=== PATIENT | female | born 1940 | race Caucasian/White ===

== ENCOUNTER 2021-12-02 06:46 | Emergency (ER) | payer MEDICARE, SELFPAY ==
[2021-12-02 06:53] VITALS: BP 154/74; PULSE 86; RESP 16; TEMP 36.6; O2SAT 98; BMI 22.3
--- NOTE | 2021-12-02 07:04 | CRLHL7_ITS ---
For Patients: As a result of the Cures Act, medical imaging exams and procedure reports are released immediately into your electronic medical record. You may view this report before your referring provider. If you have questions, please contact your health care provider. INDICATION: Trauma COMPARISON: No prior shoulder study TECHNIQUE: Three views of the right shoulder were acquired FINDINGS: Bone mineral density is decreased. There is osteoarthritis. A fracture of the distal clavicle is noted. The acromioclavicular joint does not appear to be widened. IMPRESSION: Fracture of the distal right clavicle without widening or apparent disruption of the acromioclavicular joint. Dictated by Farshad Garner MD @ 12/02/2021 7:36:37 AM (Electronically Signed)
--- NOTE | 2021-12-02 07:04 | CRLHL7_ITS ---
For Patients: As a result of the Cures Act, medical imaging exams and procedure reports are released immediately into your electronic medical record. You may view this report before your referring provider. If you have questions, please contact your health care provider. INDICATION: Pain. Fall. COMPARISON: 02/20/2020 TECHNIQUE: Single-view chest radiograph FINDINGS: TUBES AND LINES: None. HEART AND MEDIASTINUM: The heart size is normal. The mediastinal contour appears normal for patient age. LUNGS AND PLEURAL SPACES: The lungs appear normal.The pleural spaces are unremarkable. OSSEOUS STRUCTURES: Age-appropriate appearance. No acute focal finding. IMPRESSION: No evidence of active pulmonary disease. Dictated by Farshad Garner MD @ 12/02/2021 7:34:32 AM (Electronically Signed)
--- NOTE | 2021-12-02 07:08 | CRLHL7_ITS ---
For Patients: As a result of the Century Cures Act, medical imaging exams and procedure reports are released immediately into your electronic medical record. You may view this report before your referring provider. If you have questions, please contact your health care provider. INDICATION: Trauma. On Coumadin. COMPARISON: July 08, 2021 TECHNIQUE: CT examination of the head was performed as axial sections without intravenous contrast. Images were obtained from the vertex of the skull through the skull base. Please note that all CT scans at this facility use dose modulation, iterative reconstruction, and/or weight-based dosing when appropriate to reduce radiation dose to as low as reasonably achievable. FINDINGS: The brain shows no sign of mass lesion, mass effect, hemorrhage, or edema. Probable nonacute subcortical infarct on the right. Similar to July 08, 2021. The ventricles and sulci are normal in appearance for the patient`s age. The visualized portions of the orbits are normal in appearance. The osseous structures are normal in their appearance with no sign of abnormality in the skull base or calvarium. IMPRESSION: No hemorrhage. No acute appearing finding when compared to July 08, 2021. Please note that all CT scans at this facility use dose modulation, iterative reconstruction, and/or weight-based dosing when appropriate to reduce radiation dose to as low as reasonably achievable. Dictated by Farshad Garner MD @ 12/02/2021 7:40:28 AM (Electronically Signed)
--- NOTE | 2021-12-02 07:08 | ED.GENADULT ---
HPI - General Adult General Time Seen by Provider: 06:58 Date Seen: 12/02/21 Chief complaint: Shoulder Injury/Pain Stated complaint: fall/right shoulder injury Time Seen by Provider: 12/02/21 06:57 Source: patient and family Mode of arrival: ambulatory Limitations: no limitations History of Present Illness HPI narrative: 81-year-old female who comes in today right arm and shoulder pain hours ago. She tripped and landed on her right shoulder. She has pain in the right shoulder and right lateral chest. She denies any shortness of breath or cough. She denies loss of consciousness. She has not taken anything for her pain. Related Data Home Medications Medication Instructions Recorded Confirmed metoprolol succinate 25 mg 25 mg PO DAILY 12/02/21 12/02/21 tablet,extended release 24 hr Previous Rx's Medication Instructions Recorded warfarin 5 mg tablet 5 mg PO QDAY #90 tab 11/20/21 tramadol 50 mg tablet 50 mg PO Q8H PRN #10 tab 12/05/21 Allergies Allergy/AdvReac Type Severity Reaction Status Date / Time No Known Drug Allergies Allergy Verified 12/05/21 12:38 Review of Systems Status of ROS: Reports: 10 or more systems reviewed and unremarkable except as noted in History and below [facility] Medical History (Updated 12/05/21 @ 12:12 by Kassi Mcduffie MD) Kidney infarction Left ventricular apical thrombus TIA (transient ischemic attack) Surgical History (Updated 12/05/21 @ 12:12 by Kassi Mcduffie MD) History of benign breast biopsy History of bilateral cataract extraction History of melanoma (~2014) History of squamous cell carcinoma of skin (~2014) Family History (Updated 12/02/21 @ 11:28 by Mercedez Ames) Maternal Grandmother Breast cancer Mother CHF (congestive heart failure) Daughter Breast cancer Social History Smoking Status: Never smoker Do you use any of these nicotine containing products: None How often do you have a drink containing alcohol: never AUDIT-C Alcohol total score: 0 Non-prescribed substance use: denies use Exam Narrative: Exam Narrative: General: Well-developed and well-nourished, no acute distress Head: Atraumatic and normocephalic Eyes: Pupils are equal reactive, extraocular motions intact, conjunctiva clear ENT: External nose and ears are normal, posterior pharynx without erythema or exudate Neck: No midline cervical tenderness, full spontaneous range of motion the neck, trachea midline, no adenopathy Heart: Regular rate and rhythm no murmurs or thrills Lungs: Clear to auscultation bilaterally without wheezes or crackles. Right lateral chest wall tenderness. Abdomen: Soft, nontender, nondistended with active bowel sounds Musculoskeletal: Bruising and swelling of the right shoulder with clavicle deformity, moderate joint effusion. Neurologic: Awake, alert, and oriented x3, no gross focal neurologic deficits, cranial nerves intact as tested Psych: Mood and affect are appropriate Skin: No rashes Const: Vital Signs, click to edit/add: Vital Signs - 24 hr 12/02/21 06:53 Temperature 97.9 F Pulse Rate [Left P ulse Oximeter] 86 Respiratory Rate 16 Blood Pressure [Le ft Upper Arm] 154/74 H Pulse Oximetry 98 Documenting provider has reviewed patient's vital signs: yes Course Course Hospital Course: CT scan of the head, neck negative. X-ray of the shoulder demonstrates distal clavicle fracture. Sling was placed and patient is discharged in stable condition Vital Signs Vital signs: Initial Vital Signs Temperature 97.9 F 12/02/21 06:53 Temperature Source Temporal Artery Scan 12/02/21 06:53 Pulse Rate 86 12/02/21 06:53 Pulse Rhythm 12/02/21 06:53 Respiratory Rate 16 12/02/21 06:53 Blood Pressure 154/74 H 12/02/21 06:53 Blood Pressure Mean 100 12/02/21 06:53 Blood Pressure Position Sitting 12/02/21 06:53 Pulse Oximetry 98 12/02/21 06:53 Oxygen Delivery Method 12/02/21 06:53 Vital Signs Temperature 97.9 F 12/02/21 06:53 Pulse Rate 86 12/02/21 06:53 Respiratory Rate 16 12/02/21 06:53 Blood Pressure 154/74 H 12/02/21 06:53 Pulse Oximetry 98 12/02/21 06:53 Temperature 97.9 F 12/02/21 06:53 Pulse Rate 78 12/02/21 08:04 Respiratory Rate 15 12/02/21 08:04 Blood Pressure 154/74 H 12/02/21 06:53 Pulse Oximetry 98 12/02/21 08:04 Medical Decision Making MDM Narrative Medical decision making narrative: Patient seen and examined fell and sustained a right shoulder injury. Likely fracture of the clavicle, humerus fracture also possible. Head CT ordered for possible intracranial hemorrhage given Coumadin use the wall. X-rays and head CT are ordered, [place] ordered as well. Medical Records Medical records reviewed: Yes I reviewed the patient's medical records Lab Data Lab results reviewed: Yes I reviewed the patient's lab results Discharge Plan Discharge Clinical Impression: Closed fracture of distal clavicle, terminal make up operator (current) use of anticoagulants Instructions: Clavicle Fracture (ED) Additional Instructions: Wear sling for comfort. Remove the sling every 2-3 hours to do motion exercises. Activity Level: Activity as Tolerated Discharge Diet: Regular Prescriptions: No Action tramadol 50 mg tablet 50 mg PO Q8H PRN (Reason: pain) Qty: 10 0RF metoprolol succinate 25 mg tablet extended release 24 hr 25 mg PO DAILY 0RF Label Comments: TAKE 1/2 (ONE-HALF) TABLET BY MOUTH ONCE DAILY DO NOT CRUSH OR CHEW warfarin 5 mg tablet 5 mg PO QDAY Qty: 90 0RF Protocol: Dose Management Condition: Thursday Dose/Route: 5 % Instruction: 1 x 5 % tablet Condition: Thursday Dose/Route: 2.5 % Instruction: 0.5 x 5 % tablets Condition: Thursday Dose/Route: 5 % Instruction: 1 x 5 % tablet Condition: Thursday Dose/Route: 2.5 % Instruction: 0.5 x 5 % tablets Condition: Dose/Route: 5 % Instruction: 1 x 5 % tablet Condition: Thursday Dose/Route: 2.5 % Instruction: 0.5 x 5 % tablets Condition: Thursday Dose/Route: 5 % Instruction: 1 x 5 % tablet Protocol Text: Adjustment Start Date: Thursday11/20/21 INR Value: 3.3 INR Date: 11/20/21 Recheck Date: 12/04/21 Rx Instructions: Take 2.5 mg po on Thursday/Thursday/Thursday, take 5mg po the rest of the week. Follow Up/Referrals: Kassi Mcduffie MD [Primary Care Provider] - 2 Days
[2021-12-02] MEDS: HYDROCODONE-ACETAMIN 5-325 MG 1 TAB PO (07:27)
[2021-12-02 08:04] VITALS: PULSE 78; RESP 15; O2SAT 98
== END 2021-12-02 08:04 | disposition home or self-care (01) ==
LOC: ED 07:49
PROVIDERS: Emergency Provider Family Medicine; PCP Internal Medicine
DX: S42.034A Nondisplaced fracture of lateral end of right clavicle, initial encounter for closed fracture (principal); W01.0XXA Fall on same level from slipping, tripping and stumbling without subsequent striking against object, initial encounter
CPT/HCPCS: 70450; 71045; 73030; 99284; A9270

== ENCOUNTER 2022-06-09 08:23 | Emergency (ER) | payer MEDICARE, SELFPAY ==
[2022-06-09 08:29] VITALS: BP 136/82; PULSE 91; RESP 20; TEMP 37.6; O2SAT 94; BMI 23.2
--- NOTE | 2022-06-09 09:27 | CRLHL7_ITS ---
For Patients: As a result of the Cures Act, medical imaging exams and procedure reports are released immediately into your electronic medical record. You may view this report before your referring provider. If you have questions, please contact your health care provider. INDICATION: Fever. TECHNIQUE: AP portable chest. COMPARISON: December 02, 2021. FINDINGS: Clear lungs. Normal heart size and pulmonary vascularity. The included skeleton is unremarkable. IMPRESSION: No acute cardiopulmonary process identified. Dictated by Akhil Lao MD @ 06/09/2022 9:54:27 AM (Electronically Signed)
[2022-06-09 09:29] LABS: PCR FLU A Negative PCR FLU A (Negative); PCR FLU B Negative PCR FLU B (Negative); PCR RSV Negative PCR RSV (Negative)
[2022-06-09 09:33] LABS: SARS PCR* POSITIVE SARS-CoV-2 (Negative)
[2022-06-09] MEDS: TRAMADOL HCL 50 MG TABLET PO (09:59)
[2022-06-09 10:13] LABS: Strep A DNA Probe* NOT DETECTED (Not Detectd)
[2022-06-09 10:30] VITALS: PULSE 81; RESP 20; TEMP 37.9; O2SAT 96
[2022-06-09 10:53] VITALS: BP 119/67; PULSE 78; RESP 18; O2SAT 94
--- NOTE | 2022-06-09 11:15 | ED_ITS ---
HPI - General Adult General Date Seen: 06/09/22 Chief complaint: Fever Stated complaint: Fever/sore throat/headache/home covid neg Time Seen by Provider: 06/09/22 09:07 Source: patient and family Mode of arrival: ambulatory Limitations: no limitations History of Present Illness HPI narrative: Patient is a 81-year-old woman here with her granddaughter. For the past couple of days she has had a little bit of a sore throat which got worse last night. She has had a headache, a little bit of a cough, has some right-sided lower chest pain when she takes a deep breath. She has not had any shortness of breath. She has had a fever up to 102. She has taken a couple of COVID test at home which were negative. No ill contacts. She does have a history of AFib, she is on Coumadin for that. She takes her Coumadin regularly. Also has a history of coronary artery disease. Has not been having any left-sided chest pain. In looking at her INR the past couple of times it has been checked, it has been on the low side, 1.8. I asked her about this, she says that they did not change her dosing but she changed it on her own, increasing it slightly. Related Data Home Medications Medication Instructions Recorded Confirmed metoprolol succinate 25 mg 25 mg PO DAILY 12/02/21 06/09/22 tablet,extended release 24 hr Previous Rx's Medication Instructions Recorded tramadol 50 mg tablet 50 mg PO Q8H PRN pain #10 tabs 12/05/21 warfarin 5 mg tablet 5 mg PO QDAY #90 tabs 02/27/22 Allergies Allergy/AdvReac Type Severity Reaction Status Date / Time No Known Drug Allergies Allergy Verified 06/09/22 08:35 Review of Systems Status of ROS: Reports: 10 or more systems reviewed and unremarkable except as noted in History and below [facility] Medical History Kidney infarction Left ventricular apical thrombus TIA (transient ischemic attack) Surgical History (Updated 12/05/21 @ 12:12 by Kassi Mcduffie MD) History of benign breast biopsy History of bilateral cataract extraction History of melanoma (~2014) History of squamous cell carcinoma of skin (~2014) Family History (Updated 12/02/21 @ 11:28 by Mercedez Ames) Maternal Grandmother Breast cancer Mother CHF (congestive heart failure) Daughter Breast cancer Social History Smoking Status: Never smoker Do you use any of these nicotine containing products: None How often do you have a drink containing alcohol: 2-3 times a week How many standard drinks containing alcohol do you have on a typical day: 1 or 2 AUDIT-C Alcohol total score: 3 Non-prescribed substance use: denies use service: No Exam Narrative: Exam Narrative: Vital signs as noted above. In general, an alert, well-appearing patient. Head: Normocephalic, atraumatic. Eyes: Pupils are equal reactive. Extraocular movements are full. Conjunctivae are normal. ENT: Mucous membranes are moist. Throat is normal. Neck: Supple without lymphadenopathy. Heart: Regular rate and rhythm. No murmur or rub. Lungs: Clear bilaterally. No increased work of breathing, crackles or wheezes. Extremities: Well perfused. No edema. No calf tenderness. Pulses intact. Neurologic: Patient is alert and oriented to person and place. Speech is fluent. Face is symmetric. Moves all extremities equally. Affect: Normal. Skin: Warm and dry. Well perfused. Const: Vital Signs, click to edit/add: Vital Signs - 24 hr 06/09/22 08:29 06/09/22 10:30 06/09/22 10:53 Temperature 99.6 F 100.2 F H Pulse Rate [Right Pulse Oximeter] 91 81 78 Respiratory Rate 20 20 18 Blood Pressure [Le ft Forearm] 119/67 Blood Pressure [Ri ght Upper Arm] 136/82 Pulse Oximetry 94 96 94 Oxygen Delivery Me thod Room Air Room Air Room Air Documenting provider has reviewed patient's vital signs: yes Course Course Hospital Course: We checked COVID, RSV, influenza and strep here. I also did a chest x-ray. By my review, chest x-ray is negative, final radiology report is likewise negative. Ultimately, her COVID returned positive. I do not see any evidence of pneumonia. I did consider possible PE given the pain that she has had the right side of her chest. I did recheck her INR today, she is at 2.1. Her goal INR is 2-3. Given that she is not hypoxic, tachycardic, or having any shortness of breath, I do not think it is necessary to pursue CT angiogram today. As she is therapeutic on her Coumadin, I think the likelihood of PE is low. Chest pain is likely related to her COVID. For now, I have recommended supportive care. She did request something for headache, and says that tramadol has been helpful in the past so we gave her that here. She feels improved. She can continue with NyQuil or DayQuil as she has also found that helpful. Return for severe shortness of breath or other concerns. Because of her Coumadin, discussed that Paxlovid is not an option. However, given her underlying coronary artery disease, history of AFib, and age, discussed that she is at higher risk of severe COVID. We discussed remdesivir and she did decide to proceed with that. She received her 1st infusion today and will return for the next 2 days to continue that treatment. Vital Signs Vital signs: Initial Vital Signs Temperature 99.6 F 06/09/22 08:29 Temperature Source Temporal Artery Scan 06/09/22 08:29 Pulse Rate 91 06/09/22 08:29 Pulse Rhythm 06/09/22 08:29 Respiratory Rate 20 06/09/22 08:29 Blood Pressure 136/82 06/09/22 08:29 Blood Pressure Mean 100 06/09/22 08:29 Blood Pressure Position Sitting 06/09/22 08:29 Pulse Oximetry 94 06/09/22 08:29 Oxygen Delivery Method 06/09/22 08:29 Vital Signs Temperature 99.6 F 06/09/22 08:29 Pulse Rate 91 06/09/22 08:29 Respiratory Rate 20 06/09/22 08:29 Blood Pressure 136/82 06/09/22 08:29 Pulse Oximetry 94 06/09/22 08:29 Oxygen Delivery Method 06/09/22 08:29 Temperature 100.2 F H 06/09/22 10:30 Pulse Rate 78 06/09/22 10:53 Respiratory Rate 18 06/09/22 10:53 Blood Pressure 119/67 06/09/22 10:53 Pulse Oximetry 94 06/09/22 10:53 Oxygen Delivery Method 06/09/22 10:53 Medical Decision Making Lab Data Labs: Lab Results 06/09/22 06/09/22 06/09/22 Range/Units 08:38 09:30 11:35 INR 2.09 H (0.91-1.10) SARS-CoV-2 (PCR) POSITIVE SARS-CoV-2 A (Negative) Influenza Type A (PCR) Negative PCR FLU A (Negative) Influenza Type B (PCR) Negative PCR FLU B (Negative) RSV (PCR) Negative PCR RSV (Negative) Group A Strep DNA NOT DETECTED (Not Detectd) Discharge Plan Discharge Clinical Impression: COVID-19 Patient Disposition: Home, Self-Care Condition: Improved Instructions: COVID-19 (Coronavirus Disease 2019) (ED) Additional Instructions: Continue with NyQuil or DayQuil if needed. Tramadol if needed for more severe headache, be aware this is a narcotic, may cause drowsiness, dizziness, nausea cetera. Habit-forming, use only as needed. Return for remdesivir infusion the next 2 days as discussed. If you have worsening shortness of breath or other severe symptoms, return to the ER at any time. Prescriptions: No Action tramadol 50 mg tablet 50 mg PO Q8H PRN (Reason: pain) Qty: 10 0RF metoprolol succinate 25 mg tablet extended release 24 hr 25 mg PO DAILY Label Comments: TAKE 1/2 (ONE-HALF) TABLET BY MOUTH ONCE DAILY DO NOT CRUSH OR CHEW warfarin 5 mg tablet 5 mg PO QDAY Qty: 90 0RF Protocol: Dose Management Condition: Thursday Dose/Route: 5 % Instruction: 1 x 5 % tablet Condition: Thursday Dose/Route: 2.5 % Instruction: 0.5 x 5 % tablets Condition: Thursday Dose/Route: 5 % Instruction: 1 x 5 % tablet Condition: Thursday Dose/Route: 5 % Instruction: 1 x 5 % tablet Condition: Dose/Route: 2.5 % Instruction: 0.5 x 5 % tablets Condition: Thursday Dose/Route: 5 % Instruction: 1 x 5 % tablet Condition: Thursday Dose/Route: 2.5 % Instruction: 0.5 x 5 % tablets Protocol Text: Adjustment Start Date: Thursday05/13/22 INR Value: 1.8 INR Date: 05/13/22 Recheck Date: 06/12/22 Rx Instructions: Take 2.5 mg po on Thursday/Thursday/Thursday, take 5mg po the rest of the week. Follow Up/Referrals: Kassi Mcduffie MD [Primary Care Provider] - Stand Alone Forms: Skimbl Info Instructions
[2022-06-09 12:16] LABS: INR 2.09 (0.91-1.10); Prothrombin Time 24.5 Seconds
--- NOTE | 2022-06-09 13:25 | ED.NURSE ---
has an insty med order for tramadol, she will pick this up tomorrow when she comes in for Remdesivir. was called and she does have extra tramadol at home that she will use..
== END 2022-06-09 12:30 | disposition home or self-care (01) ==
PROVIDERS: Emergency Provider Emergency Medicine; PCP Internal Medicine
DX: U07.1 COVID-19 (principal)
CPT/HCPCS: 36415; 71045; 85610; 87502; 87634; 87635; 87651; 99284; A9270; J7050

== ENCOUNTER 2022-06-11 12:45 | Outpatient (RCR) | payer MEDICARE, SELFPAY ==
--- NOTE | 2022-06-10 15:14 | PC.NURSE ---
Pt arrived for Remdesivir infusion at 1300. Infusion complete without complication. Pt vitals stayed within normal limits. IV wrapped in coban. Pt will call when she arrives 06/11 for second infusion around 1300. Pt left via ambulation @1510
[2022-06-11 12:54] VITALS: BP 120/70; PULSE 79; RESP 14; TEMP 37.1; O2SAT 100
[2022-06-11] MEDS: 0.9 % SODIUM CHLORIDE 250 ml IV (13:01)
[2022-06-11 14:09] VITALS: BP 128/67; PULSE 69; RESP 14; TEMP 36.9; O2SAT 99
--- NOTE | 2022-06-11 14:18 | PC.NURSE ---
Discharge: Patient pleasant and cooperative. Vitally stable x2. Patient tolerated infusion well, with no symptoms. Patient refused to stay for 1 hr observation post-infusion. Patient reported no symptoms with previous remdesivir infusions and did not stay for their observation hour. Patient left the floor by foot at 1417. Right wrist IV removed, catheter intact.
== END 2022-06-11 14:40 | disposition home or self-care (01) ==
LOC: OP CLINIC 12:45
PROVIDERS: PCP Internal Medicine; Visit Provider Emergency Medicine
DX: U07.1 COVID-19 (principal)
CPT/HCPCS: 96365; 99211; J7050

== ENCOUNTER 2022-07-17 14:00 | Outpatient (CLI) | payer MEDICARE, SELFPAY ==
--- NOTE | 2022-07-17 14:00 | CRLHL7_ITS ---
For Patients: As a result of the Century Cures Act, medical imaging exams and procedure reports are released immediately into your electronic medical record. You may view this report before your referring provider. If you have questions, please contact your health care provider. INDICATION: Leg pain and swelling. TECHNIQUE: Ultrasound venous duplex lower right extremity. Compression venous exam was performed using mcclain-scale, color Doppler, and spectral Doppler analysis. COMPARISON: None. FINDINGS: Deep veins: Sonographic imaging demonstrates the right common femoral, deep femoral, superficial femoral, popliteal, posterior tibial and the contralateral right common femoral veins to be fully compressible with normal color Doppler blood flow. Superficial veins: Greater saphenous vein is fully compressible. Focal ill-defined echogenic area in the posterior calf. No popliteal cyst. IMPRESSION: No right lower extremity DVT. Focal ill-defined echogenic area in the posterior calf, in the area of pain, possibly lipoma or related trauma. Recommend close clinical surveillance. Dictated by Kashmir Freeman MD @ 07/17/2022 3:14:38 PM (Electronically Signed)
== END 2022-07-17 14:01 | disposition home or self-care (01) ==
PROVIDERS: PCP Internal Medicine; Visit Provider Emergency Medicine
DX: M79.661 Pain in right lower leg (principal); R22.41 Localized swelling, mass and lump, right lower limb
CPT/HCPCS: 93971

== ENCOUNTER 2022-12-16 14:26 | Outpatient (CLI) | payer MEDICARE, SELFPAY ==
--- OUTSIDE RECORDS SUMMARY | 2022-12-16 14:29 | XMS_ITS | Continuity of Care Document ---
Author Name Unknown Organization [facility] ic Address [address] [place] [address] Phone Care Team Providers Care Cnc Mill Set Up Operator Name Role Phone Arabella Colindres OD Unavailable Unavailable Allergies, Adverse Reactions, Alerts Substance Reaction Status Criticality No Known Allergies Active No Inform ation Medications Medication Instructions Dosage Effective Dates (start - stop) Status Comments COUMADIN (unknown strength) take 1 tablet by oral route every day Not Available - Active VITAMIN B-100 COMPLEX (unknown strength) Not Available - Active MULTIVITAMIN (unknown strength) Not Available - Active CALCIUM (unknown strength) Not Available - Active VITAMIN B-12 (unknown strength) Not Available - Active Procedures Procedure Date Postop Yag Id YAG Capsulotomy - All Care Est Extended E&M Est Extended E&M YAG Capsulotomy - All Care Refraction OCT-Glaucoma Bilateral Est Extended E&M Comprehensive Eye Code - Established Aug OCT-Glaucoma Bilateral Refraction Refraction OCT-Glaucoma Bilateral Est Extended E&M Comprehensive Eye Code - Established Apr OCT-Glaucoma Bilateral Refraction Advance Directives Directive Yes / No Effective Date File Name No Information Encounters Encounter Description Practice Location Reason(s) For Visit Diagnoses Date Provider Providers Copied on Encounter [facility], [address], [place], [id number] , tel: [phone] [place] [facility] No Information [address] [place], [address]. tel:[phone] [facility], [address] [place], [id number] , [place] tel: [phone] [facility] Post op Yag OD (chief complaint) Presence of intraocular lensSquamous cell carcinoma of skin of unspecified parts of faceMalignant melanomaOpen angle with borderline findings, low risk, bilateral September- [address], [place], [address]. tel:[phone] Referring Provider: Arabella Forrester, [address], [place], [address]. tel:[phone] Est Extended [facility], [address] [place], [id number] , [place] tel: [phone] [facility] itching and hair object in vision (chief complaint) Other secondary cataract, bilateralSquamous cell carcinoma of skin of unspecified parts of faceOpen angle with borderline findings, low risk, bilateralMalignant melanomaPresence of intraocular lensVitreous degeneration, bilateralOther secondary cataract, right eye Apr-2 8 No Information Est Extended [facility], [address] [place], [id number] , [place] tel: [phone] [facility] Dilated Exam (chief complaint) Vitreous degeneration of left eyePresence of intraocular lensMalignant melanomaOpen angle with borderline findings, low risk, bilateralMyopia of left eyeRegular astigmatism, bilateralPresbyopi aSquamous cell carcinoma of skin of unspecified parts of face Apr-0 7 No Information Est Extended [facility], [address] [place], [id number] , [place] tel: [phone] [facility] Dilated Exam (chief complaint) Presence of intraocular lensOther secondary cataract, bilateralOpen angle with borderline findings, low risk, bilateralPresbyopi aMalignant melanoma Dec-0 5 No Information [facility], [address] [place], [id number] , [place] tel: [phone] [facility] No Information 5 No Information Family History Family Member Type Diagnosis Age At Onset Problem (finding) Family history of catar act Payers Payer name Insurance type Covered democrat ID Otoniel rodrigues(s) [facility] Medicare Advantage BL [id number] Social History Type Description Quantity Date Captured Comments Alcohol Use Details Unknown Caffeine Use Details Unknown Tobacco Use Status No Information Smoking Status No Information Sex Female Chief Complaint And Reason For Visit No Information Reason For Referral Reason For Referral No Information History Of Present Illness Encounter Date Complaint History Of Prese nt Illness Post op Yag OD Post op Yag OD . Pt states VA OD has improve since having Yag Laser but notices a floater constantly. Pt states VA OS unchanged. No dryness or pain OU. itching and hair object in visio n Pt states DVA has gotten a lot more blurry OD>OS since her last exam. She is struggling with seeing and reading road signs while driving. She does have hair in vision at times OU. Also has itching and FBS OU. PT denies any pain today OU. Dilated Exam Pt states VA OU stable x 1 year for distance and near, pt wears OTC readers only. Pt states some dryness, uses AT PRN OU. No pain OU.OCT NERVE OU ordered per Dr. Horan.Exam scribed by Stefani Green. Dilated Exam Pt states VA OU has been really good over the last year. Pt uses OTC readers for NVA, seem to work well. Some dryness, uses AT when they get bad. No pain OU.Exam scribed by Stefani Green Functional Status Date Functional Assessmen t No Information Instructions Date Instruction Additional Infor louise Impression/Plan Related to Prese nce of intraocular lens Impression/Plan Related to Squam ous cell carcinoma of skin of unspecified parts of face Impression/Plan Related to Malig nant melanoma Impression/Plan Related to Open angle with borderline findings, low risk, bilateral Impression/Plan Related to Open angle with borderline findings, low risk, bilateral Impression/Plan Related to Malig nant melanoma Impression/Plan Related to Prese nce of intraocular lens Impression/Plan Related to Vitre ous degeneration, bilateral Impression/Plan Related to Other secondary cataract, bilateral Impression/Plan Related to Squam ous cell carcinoma of skin of unspecified parts of face Impression/Plan Related to Myopi a of left eye Impression/Plan Related to Regul ar astigmatism, bilateral Impression/Plan - Bi focals rx'd today. Related to Presbyopia Impression/Plan - Monitor. Relat ed to Open angle with borderline findings, low risk, bilateral Impression/Plan Related to Squam ous cell carcinoma of skin of unspecified parts of face Impression/Plan Related to Vitre ous degeneration of left eye Impression/Plan Related to Prese nce of intraocular lens Follow up - Return i n [address] Elsa Horan for Dilated Exam. Impression/Plan Related to Malig nant melanoma Impression/Plan Related to Malig nant melanoma Impression/Plan Related to Prese nce of intraocular lens Follow up - Return i n [address] Elsa Horan for OCT (ON). Impression/Plan - Ey e glasses Rx given. Related to Presbyopia Impression/Plan - Monitor. Relat ed to Open angle with borderline findings, low risk, bilateral Impression/Plan - Co ntinue to monitor. Related to Other secondary cataract, bilateral Assessments Type Assessment Date No Information Patient Care Teams Name Effective Dates (start - stop) Status Members No Information
[2022-12-16 21:32] LABS: Chloride* 106 mmol/L (96-114); Potassium* 3.9 mmol/L (3.6-5.1); Sodium* 140 mmol/L (135-149)
[2022-12-16 21:34] LABS: Creatinine* 0.7 mg/dL (0.5-1.5); Estimated Glomerular Filt Rate 87 ml/min
[2022-12-16 21:35] LABS: Blood Urea Nitrogen* 14 mg/dL (7-30); Calcium* 9.3 mg/dL (8.4-10.6); Carbon Dioxide* 27 mmol/L (20-32); Glucose* 94 mg/dL (60-115)
== END 2022-12-16 14:27 | disposition home or self-care (01) ==
LOC: LKVREF 14:27
PROVIDERS: PCP Emergency Medicine; Visit Provider Emergency Medicine
DX: I48.0 Paroxysmal atrial fibrillation (principal)
CPT/HCPCS: 80048

== ENCOUNTER 2023-01-05 11:33 | Outpatient (CLI) | payer MEDICARE, SELFPAY ==
--- OUTSIDE RECORDS SUMMARY | 2023-01-05 11:36 | XMS_ITS | Continuity of Care Document ---
Author Name Unknown Organization [facility] ic Address [address] [place] [address] Phone Care Team Providers Care Can Pusher Name Role Phone Arabella Colindres OD Unavailable [...] Diagnoses Date Provider Providers Copied on Encounter [facility], [address], [place], [id number] , tel: [phone] [place] [facility] No Information [address] [place], [address]. tel:[phone] [facility], [address] [place], [id number] , [place] tel: [phone] [facility] Post op Yag OD (chief complaint) Presence of intraocular lensSquamous cell carcinoma of skin of unspecified parts of faceMalignant melanomaOpen angle with borderline findings, low risk, bilateral September- [address], [place], [address]. tel:[phone] Referring Provider: Arabella Forrester, [address] [place], [place], [address]. tel:[phone] Est Extended E&[facility], [address] [place], [id number] , [place] tel: [phone] [facility] itching and hair object in vision (chief complaint) Other secondary cataract, bilateralSquamous cell carcinoma of skin of unspecified parts of faceOpen angle with borderline findings, low risk, bilateralMalignant melanomaPresence of intraocular lensVitreous degeneration, bilateralOther secondary cataract, right eye Apr-2 8 No Information Est Extended &[facility], [address] [place], [id number] , [place] tel: [phone] [facility] Dilated Exam (chief complaint) Vitreous degeneration of left eyePresence of intraocular lensMalignant melanomaOpen angle with borderline findings, low risk, bilateralMyopia of left eyeRegular astigmatism, bilateralPresbyopi aSquamous cell carcinoma of skin of unspecified parts of face Apr-0 7 No Information Est Extended [facility], [address] [place], [id number] , [place] tel: [phone] [facility] Dilated Exam (chief complaint) Presence of intraocular lensOther secondary cataract, bilateralOpen angle with borderline findings, low risk, bilateralPresbyopi aMalignant melanoma Dec-0 5 No Information [facility], [address] [place], [id number] , [place] tel: [phone] [facility] No Information 5 No Information Family History Family Member Type Diagnosis Age At Onset Problem (finding) Family history of catar act Payers Payer name Insurance type Covered democrat ID Otoniel rodrigues(s) [facility] Medicare Advantage [place] [id number] Social History Type Description Quantity Date Captured [...]
--- NOTE | 2023-01-05 12:43 | W.ANESCHARGE ---
Anesthesia Charges Start Date/Time Anesthesia Start Date: 01/05/23 Anesthesia Start Time: 12:47 Stop Date/Time Anesthesia Stop Date: 01/05/23 Anesthesia Stop Time: 13:57 Summary Extremes of Age - Over 70 or under 1: MDA
--- NOTE | 2023-01-05 13:59 | W.ANESCHARGE ---
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
== END 2023-01-05 11:34 | disposition home or self-care (01) ==
LOC: OP CLINIC 11:34
PROVIDERS: PCP Emergency Medicine; Visit Provider Surgery
DX: Z12.11 Encounter for screening for malignant neoplasm of colon (principal); K63.5 Polyp of colon; K64.4 Residual hemorrhoidal skin tags; K57.30 Diverticulosis of large intestine without perforation or abscess without bleeding; Q43.8 Other specified congenital malformations of intestine; Z86.010 Personal history of colon polyps
CPT/HCPCS: 00811; 45385; 88305; 99100; J2704

== ENCOUNTER 2023-01-20 08:58 | Outpatient (CLI) | payer MEDICARE, SELFPAY ==
--- OUTSIDE RECORDS SUMMARY | 2023-01-21 05:55 | XMS_ITS | Continuity of Care Document ---
Author Name Unknown Organization [facility] ic Address [address] [place] [address] Phone Care Team Providers Care Parole Officer Name Role Phone Arabella Colindres OD Unavailable [...] Diagnoses Date Provider Providers Copied on Encounter [facility], [address], [place], [id number] , tel: [phone] [place] [facility] No Information [address] [place], [address]. tel:[phone] [facility], [address] [place], [id number] , [place] tel: [phone] [facility] Post op Yag OD (chief complaint) Presence of intraocular lensSquamous cell carcinoma of skin of unspecified parts of faceMalignant melanomaOpen angle with borderline findings, low risk, bilateral September- [address], [place], [address]. tel:[phone] Referring Provider: Arabella Forrester, [address] [place], [place], [address]. tel:[phone] Est Extended E&[facility], [address] [place], [id number] , [place] tel: [phone] [facility] itching and hair object in vision (chief complaint) Other secondary cataract, bilateralSquamous cell carcinoma of skin of unspecified parts of faceOpen angle with borderline findings, low risk, bilateralMalignant melanomaPresence of intraocular lensVitreous degeneration, bilateralOther secondary cataract, right eye Apr-2 8 No Information Est Extended &[facility], [address] [place], [id number] , [place] tel: [phone] [facility] Dilated Exam (chief complaint) Vitreous degeneration of left eyePresence of intraocular lensMalignant melanomaOpen angle with borderline findings, low risk, bilateralMyopia of left eyeRegular astigmatism, bilateralPresbyopi aSquamous cell carcinoma of skin of unspecified parts of face Apr-0 7 No Information Est Extended E&[facility], [address] [place], [id number] , [place] tel: [phone] [facility] Dilated Exam (chief complaint) Presence of intraocular lensOther secondary cataract, bilateralOpen angle with borderline findings, low risk, bilateralPresbyopi aMalignant melanoma Dec-0 5 No Information [facility], [address] [place], [id number] , [place] tel: [phone] [facility] No Information 5 No Information Family History Family Member Type Diagnosis Age At Onset Problem (finding) Family history of catar act Payers Payer name Insurance type Covered democrat ID Otoniel rodrigues(s) [facility] Medicare Advantage BL [id number] Social History Type Description Quantity Date Captured [...]
== END 2023-01-20 08:59 | disposition home or self-care (01) ==
LOC: NFLDREF 01-21 05:54
PROVIDERS: PCP Emergency Medicine; Referring Provider Emergency Medicine; Visit Provider Emergency Medicine
DX: Z00.00 Encounter for general adult medical examination without abnormal findings (principal); M85.9 Disorder of bone density and structure, unspecified; Z79.01 Long term (current) use of anticoagulants; I21.4 Non-ST elevation (NSTEMI) myocardial infarction
CPT/HCPCS: 80061; 82306; 85610

== ENCOUNTER 2023-03-04 10:32 | Outpatient (CLI) | payer MEDICARE, SELFPAY ==
--- OUTSIDE RECORDS SUMMARY | 2023-03-07 18:14 | XMS_ITS | Continuity of Care Document ---
Author Name Unknown Organization [facility] ic Address [address] [place] [address] Phone Care Team Providers Care Senior Environmental Technician Name Role Phone Arabella Colindres OD Unavailable [...] Diagnoses Date Provider Providers Copied on Encounter [facility], [address], [place], [id number] , tel: [phone] [place] [facility] No Information [address] [place], [address]. tel:[phone] [facility], [address] [place], [id number] , [place] tel: [phone] [facility] Post op Yag OD (chief complaint) Presence of intraocular lensSquamous cell carcinoma of skin of unspecified parts of faceMalignant melanomaOpen angle with borderline findings, low risk, bilateral September- 8 [address], [place], [address]. tel:[phone] Referring Provider: Arabella Forrester, [address] [place], [place], [address]. tel:[phone] Est Extended E&[facility], [address] [place], [id number] , [place] tel: [phone] [facility] itching and hair object in vision (chief complaint) Other secondary cataract, bilateralSquamous cell carcinoma of skin of unspecified parts of faceOpen angle with borderline findings, low risk, bilateralMalignant melanomaPresence of intraocular lensVitreous degeneration, bilateralOther secondary cataract, right eye Apr-2 8 No Information Est Extended &[facility], [address] [place], [id number] , [place] tel: [phone] [facility] Dilated Exam (chief complaint) Vitreous degeneration of left eyePresence of intraocular lensMalignant melanomaOpen angle with borderline findings, low risk, bilateralMyopia of left eyeRegular astigmatism, bilateralPresbyopi aSquamous cell carcinoma of skin of unspecified parts of face Apr-0 7 No Information Est Extended E&[facility], [address] [place], [id number] , [place] tel: [phone] [facility] Dilated Exam (chief complaint) Presence of intraocular lensOther secondary cataract, bilateralOpen angle with borderline findings, low risk, bilateralPresbyopi aMalignant melanoma Dec-0 5 No Information [facility], [address] [place], [id number] , [place] tel: [phone] [facility] No Information 5 No Information Family History Family Member Type Diagnosis Age At Onset Problem (finding) Family history of catar act Payers Payer name Insurance type Covered alliance party ID Otoniel rodrigues(s) [facility] Medicare Advantage BL [id number] Social History Type Description Quantity Date Captured [...] No Information Instructions Date Instruction Additional Infor mation Impression/Plan Related to Open angle with borderline findings, low risk, bilateral Impression/Plan Related to Malig nant melanoma Impression/Plan Related to Squam ous cell carcinoma of skin of unspecified parts of face Impression/Plan Related to Prese nce of intraocular lens Impression/Plan Related to Squam ous cell carcinoma of skin of unspecified parts of face Impression/Plan Related to Other secondary cataract, bilateral Impression/Plan Related to Vitre ous degeneration, bilateral Impression/Plan Related to Prese nce of intraocular lens Impression/Plan Related to Malig nant melanoma Impression/Plan Related to Open angle with borderline findings, low risk, bilateral Follow up - Return i n [address] Elsa Horan for Dilated Exam. Impression/Plan Related to Malig nant melanoma Impression/Plan Related to Prese nce of intraocular lens Impression/Plan Related to Vitre ous degeneration of left eye Impression/Plan Related to Squam ous cell carcinoma of skin of unspecified parts of face Impression/Plan - Monitor. Relat ed to Open angle with borderline findings, low risk, bilateral Impression/Plan - Bi focals rx'd today. Related to Presbyopia Impression/Plan Related to Regul ar astigmatism, bilateral Impression/Plan Related to Myopi a of left eye Impression/Plan Related to Malig nant melanoma Impression/Plan Related to Prese nce of intraocular lens Impression/Plan - Ey e glasses Rx given. Related to Presbyopia Impression/Plan - Monitor. Relat ed to Open angle with borderline findings, low risk, bilateral Impression/Plan - Co ntinue to monitor. Related to Other secondary cataract, bilateral Follow up - Return i n [address] Elsa Horan for OCT (ON). Assessments Type Assessment Date No Information Patient Care Teams Name Effective Dates (start - stop) Status Members No Information
== END 2023-03-04 10:33 | disposition home or self-care (01) ==
LOC: NFLDREF 03-07 18:12
PROVIDERS: PCP Emergency Medicine; Referring Provider Emergency Medicine; Visit Provider Emergency Medicine
DX: I48.0 Paroxysmal atrial fibrillation (principal); Z79.01 Long term (current) use of anticoagulants
CPT/HCPCS: 85610

== ENCOUNTER 2023-04-15 05:52 | Emergency (ER) | payer MEDICARE, SELFPAY ==
[2023-04-15] VITALS (68 sets, daily range): BP systolic 94–165; BP diastolic 49–129; PULSE 68–141; RESP 18–24; TEMP 36.2–36.9; O2SAT 90–99
--- NOTE | 2023-04-15 06:24 | CRLHL7_ITS ---
For Patients: As a result of the Century Cures Act, medical imaging exams and procedure reports are released immediately into your electronic medical record. You may view this report before your referring provider. If you have questions, please contact your health care provider. INDICATION: LEFT FLANK PAIN, HX RIGHT RENAL THROMBOSIS. (sic) TECHNIQUE: CT abdomen and pelvis acquired with 66 cc Isovue 370 IV contrast. COMPARISON: No similar prior exam is available for comparison. FINDINGS: Lower chest: Bilateral symmetrical lower lobe interlobular septal thickening. Differential diagnostic considerations include interstitial edema. No focal pulmonary opacity or significant pleural effusion. Right coronary and left anterior descending moderate atherosclerotic coronary calcifications. Medial segment right middle lobe and inferior lingular segment left upper lobe pleural-based band opacities consistent with nonspecific minor fibrosis. In Liver: Unremarkable. Normal in size and attenuation. No suspicious masses. Gallbladder and bile ducts: Unremarkable. No stones or inflammation. No biliary dilatation. Pancreas: Unremarkable. No mass or inflammation. Spleen: Unremarkable. Normal in size. No masses. Adrenal glands: Unremarkable. No nodules. Kidneys: Severe left hydronephrosis with a transition point at the left ureteropelvic junction. No obstructing lesion is identified. Normal left renal enhancement. Multifocal interpolar and lower pole right renal cortical scar. GI tract: Unremarkable. Normal in caliber. No sign of mass or inflammation. Normal appendix. Vasculature: Imaging is performed in the early portal venous phase. Abdominal aorta is normal in caliber. Mesenteric arteries are patent. Lymph nodes: No lymphadenopathy. Peritoneum/Abdominal Wall: Unremarkable. No sign of mass or infiltration. No free air or significant free fluid. Pelvis: Unremarkable. Bones: Unremarkable for age. IMPRESSION: Severe left hydronephrosis with a transition point at the left ureteropelvic junction. No obstructing lesion is identified. Normal left renal enhancement. Neurology consultation is recommended. Bilateral symmetrical lower lobe interlobular septal thickening. Differential diagnostic considerations include interstitial edema. No focal pulmonary opacity or significant pleural effusion. Right coronary and left anterior descending moderate atherosclerotic coronary calcifications. Incidental findings described above. Please note that all CT scans at this facility use dose modulation, iterative reconstruction, and/or weight-based dosing when appropriate to reduce radiation dose to as low as reasonably achievable. Dictated by José Miguel Sung MD @ 04/15/2023 7:47:13 AM (Electronically Signed)
--- NOTE | 2023-04-15 06:32 | ED_ITS ---
HPI - General Adult General Chief complaint: Flank Pain <Cony Toney MD - Last Filed: 04/16/23 23:53> Stated complaint: abdominal / back pain <Cony Toney MD - Last Filed: 04/16/23 23:53> Time Seen by Provider: 04/15/23 06:13 <Cony Toney MD - Last Filed: 04/16/23 23:53> Source: patient <Cony Toney MD - Last Filed: 04/16/23 23:53> Mode of arrival: ambulatory <Cony Toney MD - Last Filed: 04/16/23 23:53> Limitations: no limitations <Cony Toney MD - Last Filed: 04/16/23 23:53> History of Present Illness HPI narrative: 82-year-old female presents the emergency department with a 7 hour history of pain in the left flank area, constant, sudden onset. Pain feels similar to several years ago when she had a similar pain on the opposite side that was found to be due to which she describes to be consistent with a renal thrombosis. Reports that she has been on Coumadin ever since that event though it is difficult to tell if the Coumadin was started because of atrial fibrillation or the thrombosis. It was unclear if she was anticoagulated at the time of the event but it sounds like she was not. She has had no fever. She is feeling mildly nauseated but there has been no vomiting. There is no cramping. Her last bowel movement was about 24 hours ago and was normal. No bloody stools, diarrhea. No recent falls or trauma. She has not tried taking any medication to help with her pain. No dysuria or hematuria. No difficulty breathing, chest pain or extremity difficulties. No neurological changes. Rates her pain very badly. Past medical history notable for AFib, heart valve disorder and congestive heart failure. She denies a history of coronary artery disease with this does flag in her records. Home medications are metoprolol 12.5 mg extended release once daily and Coumadin per INR goals of 2-3. Nonsmoker, lives independently, family accompanies today. ROS is notable for the flank area pain as described above, otherwise denies times 12 systems. <Cony Toney MD - Last Filed: 04/16/23 23:53> Related Data Home medications: Home Medications Medication Instructions Recorded Confirmed multivitamin 1 tab PO QAM 12/16/22 12/16/22 Previous Rx's Medication Instructions Recorded metoprolol succinate 25 mg 25 mg PO DAILY #45 tabs 01/27/23 tablet,extended release 24 hr warfarin 5 mg tablet 5 mg PO .COMPLEX #90 tabs 03/05/23 <Cony Toney MD - Last Filed: 04/16/23 23:53> Allergies/adverse reactions: Allergies Allergy/AdvReac Type Severity Reaction Status Date / Time No Known Drug Allergies Allergy Verified 01/27/23 14:58 <Cony Toney MD - Last Filed: 04/16/23 23:53> [facility] Medical History: Medical History (Updated 04/15/23 @ 14:59 by Alf Brown MD) Squamous cell carcinoma, face ?C44.320 - Squamous cell carcinoma of skin of unspecified parts of face (ICD- 10) Melanoma ?C43.9 - Malignant melanoma of skin, unspecified (ICD-10) 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 (ICD-10) Low bone density ?M85.9 - Disorder of bone density and structure, unspecified (ICD-10) Tricuspid regurgitation ?I07.1 - Rheumatic tricuspid insufficiency (ICD-10) Tubular adenoma of colon ?D12.6 - Benign neoplasm of colon, unspecified (ICD-10) Calf pain ?M79.669 - Pain in unspecified lower leg (ICD-10) Left ventricular apical thrombus ?I51.3 - Intracardiac thrombosis, not elsewhere classified (ICD-10) TIA (transient ischemic attack) ?G45.9 - Transient cerebral ischemic attack, unspecified (ICD-10) Kidney infarction ?N28.0 - Ischemia and infarction of kidney (ICD-10) <Cony Toney MD - Last Filed: 04/16/23 23:53> Surgical History: Surgical History (Updated 12/05/21 @ 12:12 by Kassi Mcduffie MD) History of squamous cell carcinoma of skin (~2014) ?Z85.828 - Personal history of other malignant neoplasm of skin (ICD-10) History of melanoma (~2014) ?Z85.820 - Personal history of malignant melanoma of skin (ICD-10) History of benign breast biopsy ?Z98.890 - Other specified postprocedural states (ICD-10) History of bilateral cataract extraction ?Z98.41 - Cataract extraction status, right eye (ICD-10) ?Z98.42 - Cataract extraction status, left eye (ICD-10) <Cony Toney MD - Last Filed: 04/16/23 23:53> Family History: Family History (Updated 12/02/21 @ 11:28 by Mercedez Ames) Maternal Grandmother Breast cancer Mother CHF (congestive heart failure) Daughter Breast cancer <Cony Toney MD - Last Filed: 04/16/23 23:53> Social History: Social History Smoking Status: Never smoker Do you use any of these nicotine containing products: None How often do you have a drink containing alcohol: 2-3 times a week How many standard drinks containing alcohol do you have on a typical day: 1 or 2 AUDIT-C Alcohol total score: 3 Non-prescribed substance use: denies use service: No <Cony Toney MD - Last Filed: 04/16/23 23:53> Exam Const: Vital Signs, click to edit/add: Vital Signs - 24 hr 04/16/23 00:00 04/16/23 00:02 Pulse Rate 67 69 Blood Pressure 109/58 L Pulse Oximetry 97 97 <Cony Toney MD - Last Filed: 04/16/23 23:53> Vital Signs, click to edit/add: Vital Signs - 24 hr 04/16/23 00:00 04/16/23 00:02 Pulse Rate 67 69 Blood Pressure 109/58 L Pulse Oximetry 97 97 <Alf Brown MD - Last Filed: 04/15/23 15:21> Common normals: alert <Cony Toney MD - Last Filed: 04/16/23 23:53> General appearance: well kempt <Cony Toney MD - Last Filed: 04/16/23 23:53> Other: Appears mildly shaky due to pain but answers questions very well. Appears well nourished and well hydrated. Polite and cooperative <Cony Toney MD - Last Filed: 04/16/23 23:53> HENMT: Common normals: normocephalic <Cony Toney MD - Last Filed: 04/16/23 23:53> Head and scalp: normocephalic <Cony Toney MD - Last Filed: 04/16/23 23:53> Face and sinus: normal facial exam <Cony Toney MD - Last Filed: 04/16/23 23:53> Mouth: oral and palatal mucosa normal <MD Rae Gatica Last Filed: 04/16/23 23:53> Eye: Common normals: conjunctivae normal <MD Rae Gatica Last Filed: 04/16/23 23:53> General eye: normal appearance of both eyes <Cony Toney MD - Last Filed: 04/16/23 23:53> Conjunctiva: conjunctiva(e) normal <Cony Toney MD - Last Filed: 04/16/23 23:53> Neck & C-Spine: Common normals: full ROM and no lymphadenopathy <MD Rae Gatica Last Filed: 04/16/23 23:53> Resp: Common normals: normal respiratory effort and clear to auscultation bilaterally <MD Rae Gatica Last Filed: 04/16/23 23:53> Effort & inspection: able to speak in complete sentences <Cony Toney MD - Last Filed: 04/16/23 23:53> Auscultation: clear to auscultation bilaterally <MD Rae Gatica Last Filed: 04/16/23 23:53> Cardio: Other: Irregularly Irregular rate, 2/6 early systolic murmur does not radiate. <MD Rae Gatica Last Filed: 04/16/23 23:53> GI: Common normals: Normal to inspection, nondistended, normoactive bowel sounds present, soft to palpation, non-tender, no hepatosplenomegaly and no masses <MD Rae Gatica Last Filed: 04/16/23 23:53> Palpation: soft and no hepatosplenomegaly <Cony Toney MD - Last Filed: 04/16/23 23:53> : Common normals: no CVA tenderness <Cony Toney MD - Last Filed: 04/16/23 23:53> Bladder/kidney exam: no CVA tenderness <Cony Toney MD - Last Filed: 04/16/23 23:53> Back & Pelvis: Common normals: no CVA tenderness and thoracic and lumbar spine normal to inspection <Cony Toney MD - Last Filed: 04/16/23 23:53> Extremity: Common normals: normal capillary refill <Cony Toney MD - Last Filed: 04/16/23 23:53> Other: Trace to 1+ edema to lower tibia right side slightly more which she states is chronic <Cony Toney MD - Last Filed: 04/16/23 23:53> Neuro: Common normals: moves all extremities and no focal motor deficits <Cony Toney MD - Last Filed: 04/16/23 23:53> Sensorium/orientation: alert <Cony Toney MD - Last Filed: 04/16/23 23:53> Speech: speech normal <Cony Toney MD - Last Filed: 04/16/23 23:53> Psych: Appearance: well kempt <Cony Toney MD - Last Filed: 04/16/23 23:53> Attitude: engaged <Cony Toney MD - Last Filed: 04/16/23 23:53> Insight: insight good <Cony Toney MD - Last Filed: 04/16/23 23:53> Judgement: judgment good <Cony Toney MD - Last Filed: 04/16/23 23:53> Skin: Common normals: no rashes or lesions noted <MD Rae Gatica Last Filed: 04/16/23 23:53> General skin exam: no rashes or lesions noted <Cony Toney MD - Last Filed: 04/16/23 23:53> Course Course ED Course: Differential diagnosis including kidney stone, repeat renal infarction, ischemic bowel, pancreatitis, pyelonephritis, musculoskeletal etiology, vascular disease, among others. Recommended placing IV, small fluid bolus due to tachycardia, typical labs including D-dimer, lactate, liver enzymes, lipase, CBC and repeat INR. Urinalysis. I recommend CT scan of the abdomen and pelvis with contrast due to history of prior renal infarction. Will start with Toradol for pain, risks and benefits of this discussed. Await findings and response. Anticipate turning patient over to incoming day shift partner. <Cony Toney MD - Last Filed: 04/16/23 23:53> Reevaluation(s) Time of Reevaluation #1: 07:55 <Cony Toney MD - Last Filed: 04/16/23 23:53> Reevaluation #1: Lab findings reviewed with patient, awaiting Urology input. Severe hydronephrosis noted on CT. Dr. Brown taking over care <Cony Toney MD - Last Filed: 04/16/23 23:53> Vital Signs Vital signs: Initial Vital Signs Temperature 97.2 F L 04/15/23 05:58 Temperature Source Temporal Artery Scan 04/15/23 05:58 Pulse Rate 125 H 04/15/23 05:58 Pulse Rhythm Regular 04/15/23 05:58 Respiratory Rate 22 04/15/23 05:58 Blood Pressure 164/85 H 04/15/23 05:58 Blood Pressure Mean 111 H 04/15/23 05:58 Blood Pressure Position Sitting 04/15/23 05:58 Pulse Oximetry 99 04/15/23 05:58 Oxygen Delivery Method Room Air 04/15/23 05:58 Vital Signs Temperature 97.2 F L 04/15/23 05:58 Pulse Rate 125 H 04/15/23 05:58 Respiratory Rate 22 04/15/23 05:58 Blood Pressure 164/85 H 04/15/23 05:58 Pulse Oximetry 99 04/15/23 05:58 Oxygen Delivery Method Room Air 04/15/23 05:58 Temperature 97.5 F L 04/15/23 15:58 Pulse Rate 69 04/16/23 00:02 Respiratory Rate 18 04/15/23 15:58 Blood Pressure 109/58 L 04/16/23 00:02 Pulse Oximetry 97 04/16/23 00:02 Oxygen Delivery Method Nasal Cannula 04/15/23 20:02 Oxygen Flow Rate 2 04/15/23 20:02 <Cony Toney MD - Last Filed: 04/16/23 23:53> Initial Vital Signs Temperature 97.2 F L 04/15/23 05:58 Temperature Source Temporal Artery Scan 04/15/23 05:58 Pulse Rate 125 H 04/15/23 05:58 Pulse Rhythm Regular 04/15/23 05:58 Respiratory Rate 22 04/15/23 05:58 Blood Pressure 164/85 H 04/15/23 05:58 Blood Pressure Mean 111 H 04/15/23 05:58 Blood Pressure Position Sitting 04/15/23 05:58 Pulse Oximetry 99 04/15/23 05:58 Oxygen Delivery Method Room Air 04/15/23 05:58 Vital Signs Temperature 97.2 F L 04/15/23 05:58 Pulse Rate 125 H 04/15/23 05:58 Respiratory Rate 22 04/15/23 05:58 Blood Pressure 164/85 H 04/15/23 05:58 Pulse Oximetry 99 04/15/23 05:58 Oxygen Delivery Method Room Air 04/15/23 05:58 Temperature 97.5 F L 04/15/23 15:58 Pulse Rate 69 04/16/23 00:02 Respiratory Rate 18 04/15/23 15:58 Blood Pressure 109/58 L 04/16/23 00:02 Pulse Oximetry 97 04/16/23 00:02 Oxygen Delivery Method Nasal Cannula 04/15/23 20:02 Oxygen Flow Rate 2 04/15/23 20:02 <Alf Brown MD - Last Filed: 04/15/23 15:21> Medications Administered Medications: Discontinued Medications Generic Name Dose Route Start Last Admin Trade Name Freq PRN Reason Stop Dose Admin Diphenhydramine HCl 12.5 mg 04/15/23 17:01 04/15/23 17:10 Diphenhydramine 50 Mg/Ml Inj IVP 04/15/23 17:02 12.5 mg ONCE ONE Administration Hydromorphone HCl 1 mg 04/15/23 11:40 04/15/23 11:53 Hydromorphone 0.5 Mg/0.5 Ml Inj IVP 04/15/23 11:41 1 mg ONCE ONE Administration Sodium Chloride 500 mls @ 500 mls/hr 04/15/23 06:24 04/15/23 08:05 0.9 % Sodium Chloride 500 Ml IV 04/15/23 07:23 Infused .Q1H ONE Infusion Sodium Chloride 500 mls @ 500 mls/hr 04/15/23 13:28 04/15/23 14:37 0.9 % Sodium Chloride 500 Ml IV 04/15/23 14:27 Infused .Q1H ONE Infusion Ketorolac Tromethamine 15 mg 04/15/23 06:24 04/15/23 06:42 Ketorolac 15 Mg/Ml Inj IVP 04/15/23 06:25 15 mg ONCE ONE Administration Lorazepam 1 mg 04/15/23 13:25 04/15/23 13:00 Lorazepam 2 Mg/Ml Inj IVP 04/15/23 13:26 1 mg ONCE ONE Administration Metoclopramide HCl 10 mg 04/15/23 17:01 04/15/23 17:10 Metoclopramide Hcl 5 Mg/Ml Inj IVP 04/15/23 17:02 10 mg ONCE ONE Administration Morphine Sulfate 4 mg 04/15/23 11:01 04/15/23 11:12 Morphine 4 Mg/Ml Inj IVP 04/15/23 11:02 4 mg ONCE ONE Administration Ondansetron HCl 4 mg 04/15/23 12:18 04/15/23 12:10 Ondansetron 2 Mg/Ml Inj IVP 04/15/23 12:19 4 mg ONCE ONE Administration Ondansetron HCl 4 mg 04/15/23 13:28 04/15/23 13:35 Ondansetron 2 Mg/Ml Inj IVP 04/15/23 13:29 4 mg ONCE ONE Administration <Cony Toney MD - Last Filed: 04/16/23 23:53> Discontinued Medications Generic Name Dose Route Start Last Admin Trade Name Freq PRN Reason Stop Dose Admin Diphenhydramine HCl 12.5 mg 04/15/23 17:01 04/15/23 17:10 Diphenhydramine 50 Mg/Ml Inj IVP 04/15/23 17:02 12.5 mg ONCE ONE Administration Hydromorphone HCl 1 mg 04/15/23 11:40 04/15/23 11:53 Hydromorphone 0.5 Mg/0.5 Ml Inj IVP 04/15/23 11:41 1 mg ONCE ONE Administration Sodium Chloride 500 mls @ 500 mls/hr 04/15/23 06:24 04/15/23 08:05 0.9 % Sodium Chloride 500 Ml IV 04/15/23 07:23 Infused .Q1H ONE Infusion Sodium Chloride 500 mls @ 500 mls/hr 04/15/23 13:28 04/15/23 14:37 0.9 % Sodium Chloride 500 Ml IV 04/15/23 14:27 Infused .Q1H ONE Infusion Ketorolac Tromethamine 15 mg 04/15/23 06:24 04/15/23 06:42 Ketorolac 15 Mg/Ml Inj IVP 04/15/23 06:25 15 mg ONCE ONE Administration Lorazepam 1 mg 04/15/23 13:25 04/15/23 13:00 Lorazepam 2 Mg/Ml Inj IVP 04/15/23 13:26 1 mg ONCE ONE Administration Metoclopramide HCl 10 mg 04/15/23 17:01 04/15/23 17:10 Metoclopramide Hcl 5 Mg/Ml Inj IVP 04/15/23 17:02 10 mg ONCE ONE Administration Morphine Sulfate 4 mg 04/15/23 11:01 04/15/23 11:12 Morphine 4 Mg/Ml Inj IVP 04/15/23 11:02 4 mg ONCE ONE Administration Ondansetron HCl 4 mg 04/15/23 12:18 04/15/23 12:10 Ondansetron 2 Mg/Ml Inj IVP 04/15/23 12:19 4 mg ONCE ONE Administration Ondansetron HCl 4 mg 04/15/23 13:28 04/15/23 13:35 Ondansetron 2 Mg/Ml Inj IVP 04/15/23 13:29 4 mg ONCE ONE Administration <Alf Brown MD - Last Filed: 04/15/23 15:21> Medical Decision Making MDM Narrative Medical decision making narrative: Patient has been accepted by [facility] but she is on the wait list. Transfer sheets will be completed. Discussed with Urology and will need transfer for stent placement. She is on the waiting list currently and hopefully can get transferred within the next few hours. Addendum: The patient had additional discomfort and she was given 2 mg of morphine, will give her 2 mg more if needed prior to her transfer. <Alf Brown MD - Last Filed: 04/15/23 15:21> Lab Data Lab results reviewed: Yes I reviewed the patient's lab results <Cony Toney MD - Last Filed: 04/16/23 23:53> Lab results narrative: Other than mildly elevated lactate, overall reassuring. Elevated lactate unlikely from infection as there is no fever or leukocytosis, likely dehydration. <Cony Toney MD - Last Filed: 04/16/23 23:53> Labs: Lab Results 04/15/23 04/15/23 04/15/23 Range/Units 06:15 08:10 08:20 WBC 8.01 (4.50-11.00) K/uL RBC 4.27 (4.00-5.20) m/uL Hgb 14.2 (12.0-16.0) gm/dL Hct 43.8 (33.0-51.0) % MCV 103 H (80-100) fL MCH 33 (26-34) pg MCHC 32 (32-36) gm/dL RDW Coeff of Stephan 12.6 (11.5-15.5) % Plt Count 367 (140-440) K/uL Neut % (Auto) 61.8 (42.0-72.0) % Lymph % (Auto) 28.2 (20-44) % [place] % (Auto) 8.0 (0.0-11.0) % Eos % (Auto) 1.2 (0.0-7.0) % Baso % (Auto) 0.7 (0.0-3.0) % Neut # (Auto) 4.94 (1.7-7.0) K/uL Lymph # (Auto) 2.26 (0.90-2.90) K/uL [place] # (Auto) 0.60 (0.00-0.90) K/UL Eos # (Auto) 0.10 (0.00-0.50) K/uL Baso # (Auto) 0.06 (0.00-0.30) K/uL Abs Immat Gran (auto) 0.01 (0.00-0.30) K/uL Imm/Tot Granulo (auto) 0.1 % INR 2.82 H (0.91-1.10) D-Dimer Quant (PE/DVT) < 0.27 (0.00-0.50) ug/ml Sodium 140 (135-149) mmol/L Potassium 3.8 (3.6-5.1) mmol/L Chloride 105 (96-114) mmol/L Carbon Dioxide 22 (20-32) mmol/L Anion Gap 13 (7-15) mEq/L BUN 14 (7-30) mg/dL Creatinine 0.8 (0.5-1.5) mg/dL Estimated GFR 74 ml/min Glucose 142 H (60-115) mg/dL Lactate 4.2 H* 1.6 (0.5-1.9) mmol/L Calcium 9.6 (8.4-10.6) mg/dL Total Bilirubin 0.9 (0.1-1.5) mg/dL AST 76 H (12-35) U/L ALT 69 H (4-35) U/L Alkaline Phosphatase 142 (40-150) U/L Troponin I < 0.01 L (0.01-0.04) ng/mL C-Reactive Protein 0.6 (0.5-1.0) mg/dL Total Protein 7.8 (6.0-8.3) g/dL Albumin 4.5 (3.3-5.0) g/dL Lipase 124 (23-300) U/L Urine Color Yellow (Yellow) Urine Appearance Clear (Clear) Urine pH 7.0 (5.0-8.5) Ur Specific [place] 1.010 (1.000-1.030) Urine Protein Negative (Negative) Urine Glucose (UA) Negative (Negative) Urine Ketones Negative (Negative) Urine Blood 1+ A (Negative) Urine Nitrite Negative (Negative) Urine Bilirubin Negative (Negative) Urine Urobilinogen 0.2 (0.2-1.0) Ur Leukocyte Esterase Negative (Negative) Urine RBC 0-2 (0-2) Urine WBC 0-2 (0-5) Ur Squamous Epith Cells Few (None-Few) Urine Bacteria Few A (None) <Cony Toney MD - Last Filed: 04/16/23 23:53> Lab Results 04/15/23 04/15/23 04/15/23 Range/Units 06:15 08:10 08:20 WBC 8.01 (4.50-11.00) K/uL RBC 4.27 (4.00-5.20) m/uL Hgb 14.2 (12.0-16.0) gm/dL Hct 43.8 (33.0-51.0) % MCV 103 H (80-100) fL MCH 33 (26-34) pg MCHC 32 (32-36) gm/dL RDW Coeff of Stephan 12.6 (11.5-15.5) % Plt Count 367 (140-440) K/uL Neut % (Auto) 61.8 (42.0-72.0) % Lymph % (Auto) 28.2 (20-44) % [place] % (Auto) 8.0 (0.0-11.0) % Eos % (Auto) 1.2 (0.0-7.0) % Baso % (Auto) 0.7 (0.0-3.0) % Neut # (Auto) 4.94 (1.7-7.0) K/uL Lymph # (Auto) 2.26 (0.90-2.90) K/uL [place] # (Auto) 0.60 (0.00-0.90) K/UL Eos # (Auto) 0.10 (0.00-0.50) K/uL Baso # (Auto) 0.06 (0.00-0.30) K/uL Abs Immat Gran (auto) 0.01 (0.00-0.30) K/uL Imm/Tot Granulo (auto) 0.1 % INR 2.82 H (0.91-1.10) D-Dimer Quant (PE/DVT) < 0.27 (0.00-0.50) ug/ml Sodium 140 (135-149) mmol/L Potassium 3.8 (3.6-5.1) mmol/L Chloride 105 (96-114) mmol/L Carbon Dioxide 22 (20-32) mmol/L Anion Gap 13 (7-15) mEq/L BUN 14 (7-30) mg/dL Creatinine 0.8 (0.5-1.5) mg/dL Estimated GFR 74 ml/min Glucose 142 H (60-115) mg/dL Lactate 4.2 H* 1.6 (0.5-1.9) mmol/L Calcium 9.6 (8.4-10.6) mg/dL Total Bilirubin 0.9 (0.1-1.5) mg/dL AST 76 H (12-35) U/L ALT 69 H (4-35) U/L Alkaline Phosphatase 142 (40-150) U/L Troponin I < 0.01 L (0.01-0.04) ng/mL C-Reactive Protein 0.6 (0.5-1.0) mg/dL Total Protein 7.8 (6.0-8.3) g/dL Albumin 4.5 (3.3-5.0) g/dL Lipase 124 (23-300) U/L Urine Color Yellow (Yellow) Urine Appearance Clear (Clear) Urine pH 7.0 (5.0-8.5) Ur Specific [place] 1.010 (1.000-1.030) Urine Protein Negative (Negative) Urine Glucose (UA) Negative (Negative) Urine Ketones Negative (Negative) Urine Blood 1+ A (Negative) Urine Nitrite Negative (Negative) Urine Bilirubin Negative (Negative) Urine Urobilinogen 0.2 (0.2-1.0) Ur Leukocyte Esterase Negative (Negative) Urine RBC 0-2 (0-2) Urine WBC 0-2 (0-5) Ur Squamous Epith Cells Few (None-Few) Urine Bacteria Few A (None) <Alf Brown MD - Last Filed: 04/15/23 15:21> Imaging Data CT scan - pelvis: Attestation: I have reviewed the pertinent imaging results. <Cony Toney MD - Last Filed: 04/16/23 23:53> My impression: Significant hydronephrosis on the left but I do not see a definitive stone. <Cony Toney MD - Last Filed: 04/16/23 23:53> Radiologist's impression: IMPRESSION: Severe left hydronephrosis with a transition point at the left ureteropelvic junction. No obstructing lesion is identified. Normal left renal enhancement. Neurology consultation is recommended. <Cony Toney MD - Last Filed: 04/16/23 23:53> ECG Data Attestation: I personally reviewed and interpreted this ECG as follows: <Cony Toney MD - Last Filed: 04/16/23 23:53> Interpretation: AFib with a rate now down to 88. Overall axis is normal with no obvious new ischemic changes. Unchanged from 07/08/21 <Cony Toney MD - Last Filed: 04/16/23 23:53> Discharge Plan Discharge Clinical Impression: Ureteral obstruction <Cony Toney MD - Last Filed: 04/16/23 23:53> Patient Disposition: Xfer Other <Cony Toney MD - Last Filed: 04/16/23 23:53> Condition: Stable <Cony Toney MD - Last Filed: 04/16/23 23:53> Additional Instructions: Transfer for Urology consult and stent placement <Cony Toney MD - Last Filed: 04/16/23 23:53> Prescriptions: No Action multivitamin Tablet 1 tab PO QAM metoprolol succinate 25 mg tablet extended release 24 hr 25 mg PO DAILY Qty: 45 3RF warfarin 5 mg tablet 5 mg PO .COMPLEX Qty: 90 1RF Protocol: Dose Management Condition: Thursday Dose/Route: 2.5 mg Instruction: 0.5 x 5 mg tablets Condition: Thursday Dose/Route: 2.5 mg Instruction: 0.5 x 5 mg tablets Condition: Thursday Dose/Route: 2.5 mg Instruction: 0.5 x 5 mg tablets Condition: Thursday Dose/Route: 5 mg Instruction: 1 x 5 mg tablet Condition: Dose/Route: 2.5 mg Instruction: 0.5 x 5 mg tablets Condition: Thursday Dose/Route: 5 mg Instruction: 1 x 5 mg tablet Condition: Thursday Dose/Route: 2.5 mg Instruction: 0.5 x 5 mg tablets Protocol Text: Adjustment Start Date: Thursday03/16/23 INR Value: 3.3 INR Date: 03/16/23 Recheck Date: 03/30/23 Additional Instructions: We discussed switching her dosing to 5 mg on Thursday, Thursday, Fridays and 2.5 mg all the other days of the week except tonight 03/16/2023 ( thursday) she will take a 2.5 mg; she will be going on vacation and will be gone for 2 weeks. Plan to recheck at that time Patient Comments: take 2.5 mg, thu and thursday, take 5 mg the rest of the week Rx Instructions: 2.5mg Thursday, Thursday, Thursday. 5mg Thursday, Thursday, , Thursday <Cony Toney MD - Last Filed: 04/16/23 23:53> Stand Alone Forms: [facility] Info Instructions <Cony Toney MD - Last Filed: 04/16/23 23:53>
[2023-04-15 06:42] LABS: Lactate* 4.2 mmol/L (0.5-1.9)
[2023-04-15] MEDS: 0.9 % SODIUM CHLORIDE 500 ML 500 ML IV ×2 (06:42→13:34)
[2023-04-15] MEDS: KETOROLAC 15 MG/ML inj IVP (06:42)
[2023-04-15 06:43] LABS: Basophils Absolute Auto 0.06 K/uL (0.00-0.30); Basophils Percent Auto 0.7 % (0.0-3.0); Eosinophils Percent Auto 1.2 % (0.0-7.0); Hematocrit 43.8 % (33.0-51.0); Hemoglobin* 14.2 gm/dL (12.0-16.0); Immature Granulocytes Abs Auto 0.01 K/uL (0.00-0.30); Immature Granulocytes Pct Auto 0.1 %; Lymphocytes Absolute Auto 2.26 K/uL (0.90-2.90); Lymphocytes Percent Auto 28.2 % (20-44); Mean Corpuscular HGB Conc 32 gm/dL (32-36); Mean Corpuscular Hemoglobin 33 pg (26-34); Mean Corpuscular Volume 103 fL (80-100); Neutrophils Absolute Auto 4.94 K/uL (1.7-7.0); Neutrophils Percent Auto 61.8 % (42.0-72.0); Platelet Count* 367 K/uL (140-440); RDW Coefficient of Variation % 12.6 % (11.5-15.5); Red Blood Count 4.27 m/uL (4.00-5.20); White Blood Count* 8.01 K/uL (4.50-11.00)
[2023-04-15 06:50] LABS: Slide Review Reflex No
[2023-04-15 06:55] LABS: Albumin* 4.5 g/dL (3.3-5.0); Chloride* 105 mmol/L (96-114)
[2023-04-15 06:56] LABS: Potassium* 3.8 mmol/L (3.6-5.1); Sodium* 140 mmol/L (135-149)
[2023-04-15 06:58] LABS: Alkaline Phosphatase* 142 U/L (40-150); Anion Gap 13 mEq/L (7-15); Aspartate Amino Transferase* 76 U/L (12-35); Bilirubin Total* 0.9 mg/dL (0.1-1.5); Carbon Dioxide* 22 mmol/L (20-32); Creatinine* 0.8 mg/dL (0.5-1.5); Estimated Glomerular Filt Rate 74 ml/min; Lipase* 124 U/L (23-300); Total Protein* 7.8 g/dL (6.0-8.3)
[2023-04-15 06:59] LABS: Alanine Aminotransferase* 69 U/L (4-35); Blood Urea Nitrogen* 14 mg/dL (7-30); Calcium* 9.6 mg/dL (8.4-10.6); Glucose* 142 mg/dL (60-115)
[2023-04-15 07:01] LABS: C Reactive Protein* 0.6 mg/dL (0.5-1.0)
[2023-04-15 07:09] LABS: D Dimer Quantitative* < 0.27 ug/ml (0.00-0.50)
[2023-04-15 07:13] LABS: Troponin I* < 0.01 ng/mL (0.01-0.04)
[2023-04-15 08:16] LABS: Lactate* 1.6 mmol/L (0.5-1.9)
[2023-04-15 08:28] LABS: Appearance Urine Clear (Clear); Bilirubin Urine Negative (Negative); Blood Urine 1+ (Negative); Color Urine Yellow (Yellow); Glucose Urine Negative (Negative); Ketones Urine Negative (Negative); Leukocyte Esterase Urine Negative (Negative); Nitrite Urine Negative (Negative); Protein Urine Negative (Negative); Urobilinogen Urine 0.2 (0.2-1.0)
[2023-04-15 08:38] LABS: Bacteria Urine Few; RBC Urine 0-2 (0-2); Squamous Epithelial Cell Urine Few (None-Few); WBC Urine 0-2 (0-5)
[2023-04-15 10:35] LABS: INR 2.82 (0.91-1.10); Prothrombin Time 31.9 Seconds
[2023-04-15] MEDS: MORPHINE 4 MG/ML INJ IVP (11:12)
--- NOTE | 2023-04-15 11:32 | ED.NURSE ---
Remaining 2mg of the 4mg of Morphine ordered have been administered to pt. Pt complained of untouched painafter 15 minutes, therefor gave the rest of the morphine to pt.
[2023-04-15] MEDS: HYDROmorphone 0.5 mg/0.5 ml inj 1 MG IVP (11:53)
[2023-04-15] MEDS: ONDANSETRON 2 MG/ML inj 4 MG IVP ×2 (12:10→13:35)
--- NOTE | 2023-04-15 12:31 | ED.NURSE ---
After pt was given Dilaudid, pt oxygen dropped down to 88% periodically. Pt put on 2L of oxygen
[2023-04-15] MEDS: LORazepam 2 MG/ML inj 1 MG IVP (13:00)
--- NOTE | 2023-04-15 17:02 | ED.NURSE ---
Pt unable to void while feeling that she has the sensation to go. Bladder scan showed 350-400cc. notified.
[2023-04-15] MEDS: diphenhydrAMINE 50 MG/ML inj 12.5 MG IVP (17:10)
[2023-04-15] MEDS: METOCLOPRAMIDE HCL 5 MG/ML INJ 10 MG IVP (17:10)
--- NOTE | 2023-04-15 22:17 | ED_ITS ---
HPI - General Adult General Chief complaint: Flank Pain Stated complaint: abdominal / back pain Time Seen by Provider: 04/15/23 06:13 Source: patient Mode of arrival: ambulatory Limitations: no limitations History of Present Illness HPI narrative: Dr. Mahoney assumed care of this patient at shift change-1600 on 04/15. Patient was having nausea after Dilaudid given earlier this afternoon. Not resolved after 2 doses of Zofran For ongoing nausea administered Reglan and Benadryl. She had resolution of nausea and was feeling better. She remains somewhat drowsy. Her granddaughter is with her and notes that she has always been incredibly sensitive to opiates and has a lot of drowsiness and nausea even with low doses. She did receive 4 mg of morphine and 1 mg of Dilaudid earlier. Suspect her symptoms are related to her opiate. Otherwise vital stable. 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 At about 8:00 p.m. we received a bed assignment at [facility] through the [facility]. She is accepted by the hospitalist Dr. Garcia. Also discussed with the urology service at [place], Dr. Lundberg. He will consult on the patient when she arrives. Anticipate probable stent tomorrow morning. Patient will not receive her bed assignment for additional 4 hours. Anticipate that should be able to transfer to [place] (by EMS) after midnight tonight, after her bed is assigned. Related Data Home Medications Medication Instructions Recorded Confirmed multivitamin 1 tab PO QAM 12/16/22 12/16/22 Previous Rx's Medication Instructions Recorded metoprolol succinate 25 mg 25 mg PO DAILY #45 tabs 01/27/23 tablet,extended release 24 hr warfarin 5 mg tablet 5 mg PO .COMPLEX #90 tabs 03/05/23 Allergies Allergy/AdvReac Type Severity Reaction Status Date / Time No Known Drug Allergies Allergy Verified 01/27/23 14:58 [facility] Medical History (Updated 04/15/23 @ 14:59 by Alf Brown MD) Squamous cell carcinoma, face ?C44.320 - Squamous cell carcinoma of skin of unspecified parts of face (ICD- 10) Melanoma ?C43.9 - Malignant melanoma of skin, unspecified (ICD-10) 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 (ICD-10) Low bone density ?M85.9 - Disorder of bone density and structure, unspecified (ICD-10) Tricuspid regurgitation ?I07.1 - Rheumatic tricuspid insufficiency (ICD-10) Tubular adenoma of colon ?D12.6 - Benign neoplasm of colon, unspecified (ICD-10) Calf pain ?M79.669 - Pain in unspecified lower leg (ICD-10) Left ventricular apical thrombus ?I51.3 - Intracardiac thrombosis, not elsewhere classified (ICD-10) TIA (transient ischemic attack) ?G45.9 - Transient cerebral ischemic attack, unspecified (ICD-10) Kidney infarction ?N28.0 - Ischemia and infarction of kidney (ICD-10) Surgical History (Updated 12/05/21 @ 12:12 by Kassi Mcduffie MD) History of squamous cell carcinoma of skin (~2014) ?Z85.828 - Personal history of other malignant neoplasm of skin (ICD-10) History of melanoma (~2014) ?Z85.820 - Personal history of malignant melanoma of skin (ICD-10) History of benign breast biopsy ?Z98.890 - Other specified postprocedural states (ICD-10) History of bilateral cataract extraction ?Z98.41 - Cataract extraction status, right eye (ICD-10) ?Z98.42 - Cataract extraction status, left eye (ICD-10) Family History (Updated 12/02/21 @ 11:28 by Mercedez Ames) Maternal Grandmother Breast cancer Mother CHF (congestive heart failure) Daughter Breast cancer Social History Smoking Status: Never smoker Do you use any of these nicotine containing products: None How often do you have a drink containing alcohol: 2-3 times a week How many standard drinks containing alcohol do you have on a typical day: 1 or 2 AUDIT-C Alcohol total score: 3 Non-prescribed substance use: denies use service: No Exam Const: Vital Signs, click to edit/add: Vital Signs - 24 hr 04/15/23 05:58 04/15/23 06:26 04/15/23 06:30 Temperature 97.2 F L Pulse Rate 101 H 99 Pulse Rate [Left P ulse Oximeter] 125 H Respiratory Rate 22 Blood Pressure Blood Pressure [Ri ght Upper Arm] 164/85 H Pulse Oximetry 99 94 93 Oxygen Delivery Me thod Room Air Oxygen Flow Rate 04/15/23 06:31 04/15/23 07:00 04/15/23 07:02 Temperature Pulse Rate 100 88 85 Pulse Rate [Left P ulse Oximeter] Respiratory Rate Blood Pressure 155/94 H 140/77 H Blood Pressure [Ri ght Upper Arm] Pulse Oximetry 94 94 94 Oxygen Delivery Me thod Oxygen Flow Rate 04/15/23 07:03 04/15/23 07:41 04/15/23 08:00 Temperature Pulse Rate 83 84 87 Pulse Rate [Left P ulse Oximeter] Respiratory Rate Blood Pressure Blood Pressure [Ri ght Upper Arm] Pulse Oximetry 95 94 93 Oxygen Delivery Me thod Oxygen Flow Rate 04/15/23 11:14 04/15/23 11:15 04/15/23 11:30 Temperature 98.5 F Pulse Rate 141 H 133 H Pulse Rate [Left P ulse Oximeter] 110 H Respiratory Rate 24 Blood Pressure 161/129 H Blood Pressure [Ri ght Upper Arm] 165/116 H Pulse Oximetry 95 98 98 Oxygen Delivery Me thod Room Air Oxygen Flow Rate 04/15/23 11:30 04/15/23 11:32 04/15/23 12:00 Temperature Pulse Rate 117 H 132 H 117 H Pulse Rate [Left P ulse Oximeter] Respiratory Rate Blood Pressure 165/116 H Blood Pressure [Ri ght Upper Arm] Pulse Oximetry 98 98 96 Oxygen Delivery Me thod Oxygen Flow Rate 04/15/23 12:02 04/15/23 12:30 04/15/23 12:32 Temperature Pulse Rate 114 H 94 106 H Pulse Rate [Left P ulse Oximeter] Respiratory Rate Blood Pressure 154/96 H 140/81 H Blood Pressure [Ri ght Upper Arm] Pulse Oximetry 96 97 97 Oxygen Delivery Me thod Oxygen Flow Rate 04/15/23 13:00 04/15/23 13:02 04/15/23 13:30 Temperature Pulse Rate 98 112 H 87 Pulse Rate [Left P ulse Oximeter] Respiratory Rate Blood Pressure 123/64 Blood Pressure [Ri ght Upper Arm] Pulse Oximetry 96 97 95 Oxygen Delivery Me thod Nasal Cannula Nasal Cannula Oxygen Flow Rate 2 2 04/15/23 13:32 04/15/23 14:00 04/15/23 14:01 Temperature Pulse Rate 94 84 81 Pulse Rate [Left P ulse Oximeter] Respiratory Rate Blood Pressure 117/69 97/55 L Blood Pressure [Ri ght Upper Arm] Pulse Oximetry 95 95 95 Oxygen Delivery Me thod Nasal Cannula Nasal Cannula Nasal Cannula Oxygen Flow Rate 2 2 2 04/15/23 14:30 04/15/23 14:32 04/15/23 14:33 Temperature Pulse Rate 77 77 75 Pulse Rate [Left P ulse Oximeter] Respiratory Rate Blood Pressure 98/60 Blood Pressure [Ri ght Upper Arm] Pulse Oximetry 95 95 95 Oxygen Delivery Me thod Nasal Cannula Nasal Cannula Nasal Cannula Oxygen Flow Rate 2 2 2 04/15/23 14:59 04/15/23 15:00 04/15/23 15:02 Temperature Pulse Rate 79 77 115 H Pulse Rate [Left P ulse Oximeter] Respiratory Rate Blood Pressure 103/76 122/80 Blood Pressure [Ri ght Upper Arm] Pulse Oximetry 96 97 97 Oxygen Delivery Me thod Nasal Cannula Nasal Cannula Nasal Cannula Oxygen Flow Rate 2 2 2 04/15/23 15:03 04/15/23 15:30 04/15/23 15:31 Temperature Pulse Rate 99 80 80 Pulse Rate [Left P ulse Oximeter] Respiratory Rate Blood Pressure 116/72 Blood Pressure [Ri ght Upper Arm] Pulse Oximetry 95 95 96 Oxygen Delivery Me thod Oxygen Flow Rate 04/15/23 15:58 04/15/23 16:00 04/15/23 16:02 Temperature 97.5 F L Pulse Rate 80 81 Pulse Rate [Left P ulse Oximeter] Respiratory Rate 18 Blood Pressure 122/79 Blood Pressure [Ri ght Upper Arm] Pulse Oximetry 96 95 96 Oxygen Delivery Me thod Nasal Cannula Oxygen Flow Rate 2 04/15/23 16:30 04/15/23 16:32 04/15/23 16:33 Temperature Pulse Rate 82 80 73 Pulse Rate [Left P ulse Oximeter] Respiratory Rate Blood Pressure 136/78 Blood Pressure [Ri ght Upper Arm] Pulse Oximetry 95 96 96 Oxygen Delivery Me thod Nasal Cannula Oxygen Flow Rate 2 04/15/23 17:01 04/15/23 17:02 04/15/23 17:30 Temperature Pulse Rate 88 87 86 Pulse Rate [Left P ulse Oximeter] Respiratory Rate Blood Pressure 121/89 Blood Pressure [Ri ght Upper Arm] Pulse Oximetry 90 91 95 Oxygen Delivery Me thod Nasal Cannula Nasal Cannula Nasal Cannula Oxygen Flow Rate 2 2 2 04/15/23 17:32 04/15/23 18:00 04/15/23 18:02 Temperature Pulse Rate 86 84 81 Pulse Rate [Left P ulse Oximeter] Respiratory Rate Blood Pressure 137/84 124/71 Blood Pressure [Ri ght Upper Arm] Pulse Oximetry 96 96 97 Oxygen Delivery Me thod Nasal Cannula Nasal Cannula Nasal Cannula Oxygen Flow Rate 2 2 2 04/15/23 18:30 04/15/23 18:32 04/15/23 19:00 Temperature Pulse Rate 78 81 78 Pulse Rate [Left P ulse Oximeter] Respiratory Rate Blood Pressure 110/51 L Blood Pressure [Ri ght Upper Arm] Pulse Oximetry 98 98 97 Oxygen Delivery Me thod Nasal Cannula Nasal Cannula Nasal Cannula Oxygen Flow Rate 2 2 2 04/15/23 19:02 04/15/23 19:30 04/15/23 19:32 Temperature Pulse Rate 81 78 79 Pulse Rate [Left P ulse Oximeter] Respiratory Rate Blood Pressure 115/67 101/59 L Blood Pressure [Ri ght Upper Arm] Pulse Oximetry 97 97 97 Oxygen Delivery Me thod Nasal Cannula Nasal Cannula Nasal Cannula Oxygen Flow Rate 2 2 2 04/15/23 20:00 04/15/23 20:02 Temperature Pulse Rate 73 73 Pulse Rate [Left P ulse Oximeter] Respiratory Rate Blood Pressure 96/52 L Blood Pressure [Ri ght Upper Arm] Pulse Oximetry 96 97 Oxygen Delivery Me thod Nasal Cannula Nasal Cannula Oxygen Flow Rate 2 2 Course Vital Signs Vital signs: Initial Vital Signs Temperature 97.2 F L 04/15/23 05:58 Temperature Source Temporal Artery Scan 04/15/23 05:58 Pulse Rate 125 H 04/15/23 05:58 Pulse Rhythm Regular 04/15/23 05:58 Respiratory Rate 04/15/23 05:58 Blood Pressure 164/85 H 04/15/23 05:58 Blood Pressure Mean 111 H 04/15/23 05:58 Blood Pressure Position Sitting 04/15/23 05:58 Pulse Oximetry 99 04/15/23 05:58 Oxygen Delivery Method Room Air 04/15/23 05:58 Vital Signs Temperature 97.2 F L 04/15/23 05:58 Pulse Rate 125 H 04/15/23 05:58 Respiratory Rate 22 04/15/23 05:58 Blood Pressure 164/85 H 04/15/23 05:58 Pulse Oximetry 99 04/15/23 05:58 Oxygen Delivery Method Room Air 04/15/23 05:58 Temperature 97.5 F L 04/15/23 15:58 Pulse Rate 73 04/15/23 20:02 Respiratory Rate 18 04/15/23 15:58 Blood Pressure 96/52 L 04/15/23 20:02 Pulse Oximetry 97 04/15/23 20:02 Oxygen Delivery Method Nasal Cannula 04/15/23 20:02 Oxygen Flow Rate 2 04/15/23 20:02 Medications Administered Medications: Discontinued Medications Generic Name Dose Route Start Last Admin Trade Name Freq PRN Reason Stop Dose Admin Diphenhydramine HCl 12.5 mg 04/15/23 17:01 04/15/23 17:10 Diphenhydramine 50 Mg/Ml Inj IVP 04/15/23 17:02 12.5 mg ONCE ONE Administration Hydromorphone HCl 1 mg 04/15/23 11:40 04/15/23 11:53 Hydromorphone 0.5 Mg/0.5 Ml Inj IVP 04/15/23 11:41 1 mg ONCE ONE Administration Sodium Chloride 500 mls @ 500 mls/hr 04/15/23 06:24 04/15/23 08:05 0.9 % Sodium Chloride 500 Ml IV 04/15/23 07:23 Infused .Q1H ONE Infusion Sodium Chloride 500 mls @ 500 mls/hr 04/15/23 13:28 04/15/23 14:37 0.9 % Sodium Chloride 500 Ml IV 04/15/23 14:27 Infused .Q1H ONE Infusion Ketorolac Tromethamine 15 mg 04/15/23 06:24 04/15/23 06:42 Ketorolac 15 Mg/Ml Inj IVP 04/15/23 06:25 15 mg ONCE ONE Administration Lorazepam 1 mg 04/15/23 13:25 04/15/23 13:00 Lorazepam 2 Mg/Ml Inj IVP 04/15/23 13:26 1 mg ONCE ONE Administration Metoclopramide HCl 10 mg 04/15/23 17:01 04/15/23 17:10 Metoclopramide Hcl 5 Mg/Ml Inj IVP 04/15/23 17:02 10 mg ONCE ONE Administration Morphine Sulfate 4 mg 04/15/23 11:01 04/15/23 11:12 Morphine 4 Mg/Ml Inj IVP 04/15/23 11:02 4 mg ONCE ONE Administration Ondansetron HCl 4 mg 04/15/23 12:18 04/15/23 12:10 Ondansetron 2 Mg/Ml Inj IVP 04/15/23 12:19 4 mg ONCE ONE Administration Ondansetron HCl 4 mg 04/15/23 13:28 04/15/23 13:35 Ondansetron 2 Mg/Ml Inj IVP 04/15/23 13:29 4 mg ONCE ONE Administration Medical Decision Making Lab Data Labs: Lab Results 04/15/23 04/15/23 04/15/23 Range/Units 06:15 08:10 08:20 WBC 8.01 (4.50-11.00) K/uL RBC 4.27 (4.00-5.20) m/uL Hgb 14.2 (12.0-16.0) gm/dL Hct 43.8 (33.0-51.0) % MCV 103 H (80-100) fL MCH 33 (26-34) pg MCHC 32 (32-36) gm/dL RDW Coeff of Stephan 12.6 (11.5-15.5) % Plt Count 367 (140-440) K/uL Neut % (Auto) 61.8 (42.0-72.0) % Lymph % (Auto) 28.2 (20-44) % [place] % (Auto) 8.0 (0.0-11.0) % Eos % (Auto) 1.2 (0.0-7.0) % Baso % (Auto) 0.7 (0.0-3.0) % Neut # (Auto) 4.94 (1.7-7.0) K/uL Lymph # (Auto) 2.26 (0.90-2.90) K/uL [place] # (Auto) 0.60 (0.00-0.90) K/UL Eos # (Auto) 0.10 (0.00-0.50) K/uL Baso # (Auto) 0.06 (0.00-0.30) K/uL Abs Immat Gran (auto) 0.01 (0.00-0.30) K/uL Imm/Tot Granulo (auto) 0.1 % INR 2.82 H (0.91-1.10) D-Dimer Quant (PE/DVT) < 0.27 (0.00-0.50) ug/ml Sodium 140 (135-149) mmol/L Potassium 3.8 (3.6-5.1) mmol/L Chloride 105 (96-114) mmol/L Carbon Dioxide 22 (20-32) mmol/L Anion Gap 13 (7-15) mEq/L BUN 14 (7-30) mg/dL Creatinine 0.8 (0.5-1.5) mg/dL Estimated GFR 74 ml/min Glucose 142 H (60-115) mg/dL Lactate 4.2 H* 1.6 (0.5-1.9) mmol/L Calcium 9.6 (8.4-10.6) mg/dL Total Bilirubin 0.9 (0.1-1.5) mg/dL AST 76 H (12-35) U/L ALT 69 H (4-35) U/L Alkaline Phosphatase 142 (40-150) U/L Troponin I < 0.01 L (0.01-0.04) ng/mL C-Reactive Protein 0.6 (0.5-1.0) mg/dL Total Protein 7.8 (6.0-8.3) g/dL Albumin 4.5 (3.3-5.0) g/dL Lipase 124 (23-300) U/L Urine Color Yellow (Yellow) Urine Appearance Clear (Clear) Urine pH 7.0 (5.0-8.5) Ur Specific [place] 1.010 (1.000-1.030) Urine Protein Negative (Negative) Urine Glucose (UA) Negative (Negative) Urine Ketones Negative (Negative) Urine Blood 1+ A (Negative) Urine Nitrite Negative (Negative) Urine Bilirubin Negative (Negative) Urine Urobilinogen 0.2 (0.2-1.0) Ur Leukocyte Esterase Negative (Negative) Urine RBC 0-2 (0-2) Urine WBC 0-2 (0-5) Ur Squamous Epith Cells Few (None-Few) Urine Bacteria Few A (None) Discharge Plan Discharge Clinical Impression: Ureteral obstruction Patient Disposition: Xfer Other Condition: Stable Additional Instructions: Transfer for Urology consult and stent placement Prescriptions: No Action multivitamin Tablet 1 tab PO QAM metoprolol succinate 25 mg tablet extended release 24 hr 25 mg PO DAILY Qty: 45 3RF warfarin 5 mg tablet 5 mg PO .COMPLEX Qty: 90 1RF Protocol: Dose Management Condition: Thursday Dose/Route: 2.5 mg Instruction: 0.5 x 5 mg tablets Condition: Thursday Dose/Route: 2.5 mg Instruction: 0.5 x 5 mg tablets Condition: Thursday Dose/Route: 2.5 mg Instruction: 0.5 x 5 mg tablets Condition: Thursday Dose/Route: 5 mg Instruction: 1 x 5 mg tablet Condition: Dose/Route: 2.5 mg Instruction: 0.5 x 5 mg tablets Condition: Thursday Dose/Route: 5 mg Instruction: 1 x 5 mg tablet Condition: Thursday Dose/Route: 2.5 mg Instruction: 0.5 x 5 mg tablets Protocol Text: Adjustment Start Date: Thursday03/16/23 INR Value: 3.3 INR Date: 03/16/23 Recheck Date: 03/30/23 Additional Instructions: We discussed switching her dosing to 5 mg on Thursday, Thursday, Fridays and 2.5 mg all the other days of the week except tonight 03/16/2023 ( thursday) she will take a 2.5 mg; she will be going on vacation and will be gone for 2 weeks. Plan to recheck at that time Patient Comments: take 2.5 mg, thu and thursday, take 5 mg the rest of the week Rx Instructions: 2.5mg Thursday, Thursday, Thursday. 5mg Thursday, Thursday, , Thursday Stand Alone Forms: [facility] Info Instructions
--- NOTE | 2023-04-15 22:37 | ED.NURSE ---
Patient will be going to , 4th floor, Room 4944- bed 1. Report given to JESUS Polanco at [facility]. All questions answered. EMS contacted for transport. EMS will transport around 0030 pending return of other EMS truck and 911 calls.
[2023-04-16] VITALS: PULSE 67; O2SAT 97
[2023-04-16 00:02] VITALS: BP 109/58; PULSE 69; O2SAT 97
== END 2023-04-16 00:27 | disposition other institution (70) ==
PROVIDERS: Family Medicine; Emergency Provider Emergency Medicine; PCP Emergency Medicine
DX: N13.39 Other hydronephrosis (principal)
CPT/HCPCS: 36415; 74177; 80053; 81001; 83605; 83690; 84484; 85025; 85379; 85610; 86140; 87086; 93005; 96374; 96375; 96376; 99283; 99284; 99285; J1170; J1200; J1885; J2060; J2270; J2405; J2765; J7120; Q9967

== ENCOUNTER 2023-04-16 00:21 | Outpatient (CLI) | payer MEDICARE, SELFPAY ==
--- OUTSIDE RECORDS SUMMARY | 2023-04-16 10:08 | XMS_ITS | Continuity of Care Document ---
Author Name Unknown Organization [facility] ic Address [address] [place] [address] Phone Care Team Providers Care Watcher [employer] Name Role Phone Arabella Colindres OD Unavailable [...] Diagnoses Date Provider Providers Copied on Encounter [facility], [address], [place], [id number] , tel: [phone] [place] [facility] No Information [address] [place], [address]. tel:[phone] [facility], [address] [place], [id number] , [place] tel: [phone] [facility] Post op Yag OD (chief complaint) Presence of intraocular lensSquamous cell carcinoma of skin of unspecified parts of faceMalignant melanomaOpen angle with borderline findings, low risk, bilateral September- [address], [place], [address]. tel:[phone] Referring Provider: Arabella Forrester, [address] [place], [place], [address]. tel:[phone] Est Extended [facility], [address] [place], [id number] , [place] tel: [phone] [facility] itching and hair object in vision (chief complaint) Other secondary cataract, bilateralSquamous cell carcinoma of skin of unspecified parts of faceOpen angle with borderline findings, low risk, bilateralMalignant melanomaPresence of intraocular lensVitreous degeneration, bilateralOther secondary cataract, right eye Apr-2 8 No Information Est Extended [facility], [address] [place], [id number] , [place] tel: [phone] [facility] Dilated Exam (chief complaint) Vitreous degeneration of left eyePresence of intraocular lensMalignant melanomaOpen angle with borderline findings, low risk, bilateralMyopia of left eyeRegular astigmatism, bilateralPresbyopi aSquamous cell carcinoma of skin of unspecified parts of face Apr-0 7 No Information Est Extended [facility], [address] [place], [id number] , [place] tel: [phone] [facility] Dilated Exam (chief complaint) Presence of intraocular lensOther secondary cataract, bilateralOpen angle with borderline findings, low risk, bilateralPresbyopi aMalignant melanoma Dec-0 5 No Information [facility], [address] [place], [id number] , [place] tel: [phone] [facility] No Information 5 No Information Family History Family Member Type Diagnosis Age At Onset Problem (finding) Family history of catar act Payers Payer name Insurance type Covered republican ID Otoniel rodrigues(s) [facility] Medicare Advantage BL [id number] Social History Type Description Quantity Date Captured [...]
== END 2023-04-16 00:22 | disposition home or self-care (01) ==
LOC: AMB 10:06
PROVIDERS: PCP Emergency Medicine; Visit Provider Family Medicine
DX: N13.5 Crossing vessel and stricture of ureter without hydronephrosis (principal); N13.30 Unspecified hydronephrosis
CPT/HCPCS: A0425; A0426